=== PATIENT | female | born 1995 | race Caucasian/White ===

== ENCOUNTER 2024-09-25 09:21 | Emergency (ER) | payer MEDICAID, SELFPAY ==
[2024-09-25 09:21] VITALS: BP 114/79; PULSE 74; RESP 19; TEMP 36.4; O2SAT 100; BMI 20.2
[2024-09-25 09:23] VITALS: BP 150/70; RESP 18; O2SAT 100
--- NOTE | 2024-09-25 09:35 | EKG12_ITS ---
Test Reason : CP/DIZZY Blood Pressure : */* mmHG Vent. Rate : 66 BPM Atrial Rate : 66 BPM P-R Int : 140 ms QRS Dur : 72 ms QT Int : 386 ms P-R-T Axes : 62 31 42 degrees QTcB Int : 404 ms Normal sinus rhythm with sinus arrhythmia Low voltage QRS Borderline ECG Confirmed by Earnest Jackson ([id number]), clinical editor JAMIE MARCUM ([id number]) on 09/26/2024 11:39:43 AM Referred By: ABHAY Confirmed By: Earnest Jackson
--- NOTE | 2024-09-25 09:36 | EX.ED.DYSGE1 ---
HPI History of Present Illness Chief Complaint: Dizziness Narrative Narrative: 28-year-old female past medical history of POTS, diagnosed approximately 2 years ago presents with 2 days of lightheadedness and near syncope. She states is worse when she bends over. She states that everything slows down, and it is worse when she stands back up. She feels like she has got a pass out. She denies heart palpitations or chest pain associated with this, no other symptoms. This feels very similar to her previous POTS episodes. No recent visits to the emergency department for IV fluids, no nausea or vomiting, no dysuria or other symptoms. She states that she is on Midrin to elevate her blood pressure. [facility] Medical History (Updated 09/25/24 @ 10:53 by Jack Musa MD) POTS (postural orthostatic tachycardia syndrome) Allergy/AdvReac Type Severity Reaction Status Date / Time bee venom protein (honey Allergy Severe Anaphylaxis Verified 09/25/24 09:23 bee) (bees) latex Allergy Intermediate Hives Verified 09/25/24 09:23 mai Allergy Intermediate Swelling Verified 09/25/24 09:23 Social History Smoking Status: Current every day smoker tobacco type: e-cigarettes ROS ROS ED ROS Narrative Constitutional: No fever, no chills. HEENT: No sore throat. No neck pain. No loss of vision. No rhinorrhea. Cardiovascular: No chest pain. No palpitations. No pedal edema. Respiratory: No cough, no shortness of breath. Abdominal: No abdominal pain. No nausea. No vomiting. Genitourinary: No dysuria. No hematuria. Musculoskeletal: No myalgias. No arthralgias. Neurologic: No headaches. Positive lightheadedness and dizziness, especially with standing. EXAM Physical Exam Narrative Exam Narrative: Afebrile. Vital signs noted. Regular rate and rhythm. Lungs are clear to auscultation bilaterally. Abdomen soft nontender with normal active bowel sounds. Neurological examination is nonfocal and nonlateralizing. Const Vital Signs: 09/25/24 09:21 09/25/24 09:23 09/25/24 10:23 Temperature 97.6 F L Temperature Source Temporal Pulse Rate 74 61 Respiratory Rate 19 H 18 16 Blood Pressure 114/79 150/70 H 103/69 Blood Pressure Mean 90 96 80 Pulse Ox 100 100 100 Oxygen Delivery Method Room Air Room Air 09/25/24 10:23 Temperature 97.9 F Temperature Source Pulse Rate 61 Respiratory Rate 16 Blood Pressure 103/69 Blood Pressure Mean 80 Pulse Ox 99 Oxygen Delivery Method MDM MDM MDM Narrative Medical decision making narrative: Differential diagnosis includes but not limited to POTS syndrome versus orthostatic hypotension versus dehydration versus other electrolyte imbalance. I have low suspicion for acute coronary syndrome because the history and physical does not support this. She was bolused IV fluids. Additionally, EKG was obtained and interpreted by myself independently as normal sinus rhythm with sinus arrhythmia at [address] changes. No STEMI. I do not feel she needs a troponin that she is not having chest pain. Additionally, I do not feel that she needs an x-ray of her chest because her pulse ox is 100% on room air and she is not having chest pain. I reviewed her laboratory work and she has normal white count of 6.6 with hemoglobin stable at 11.5, hematocrit 34.5, platelet count normal at 326. CMP is grossly unremarkable with normal sodium and normal potassium, no evidence of dehydration with a normal BUN and normal creatinine. Upon repeat examination, she states she feels the same, but I do not feel that she requires admission or further testing. I do feel that she is probably having more of her POTS exacerbation for which she can follow-up with her data reduction technician at [facility]. I feel she can be discharged to follow-up. Return instructions to the emergency department reviewed. Disposition is discharged home in stable condition. History & Record Review Discussion w/independent historian: Patient Lab Data Attestation: I reviewed the patient's lab results. Labs: Laboratory Results - last 24 hr 09/25/24 09:50 WBC 6.6 RBC 3.86 L Hgb 11.5 L Hct 34.5 L MCV 89.4 MCH 29.8 MCHC 33.3 RDW Std Deviation 39.6 RDW Coeff of Danny 12.3 Plt Count 326 MPV 8.7 Immature Gran % (Auto) 0.300 Neut % (Auto) 52.0 Lymph % (Auto) 36.1 Mccreary % (Auto) 9.6 Eos % (Auto) 1.2 Baso % (Auto) 0.8 Absolute Neuts (auto) 3.4 Absolute Lymphs (auto) 2.38 Nucleated RBC % 0 Sodium 140 Potassium 3.6 Chloride 105 Carbon Dioxide 27.0 Anion Gap 8 BUN 13 Creatinine 0.61 Estim Creat Clear Calc 103.61 Est GFR (MDRD) Af Amer 149 Est GFR (MDRD) Non-Af 123 BUN/Creatinine Ratio 21.3 H Glucose 78 Calcium 9.1 Total Bilirubin 0.50 AST 16 ALT 16 Alkaline Phosphatase 50 Total Protein 7.3 Albumin 4.2 Globulin 3.1 Albumin/Globulin Ratio 1.4 Discharge Plan Triage Chief Complaint: Dizziness ED Provider: Jack Musa Dx/Rx/DC Orders Clinical Impression: Lightheadedness, POTS (postural orthostatic tachycardia syndrome) Instructions: ED Low Blood Pressure, All Causes, ED Near-Fainting, Uncertain Cause Stand Alone Forms: ED Work / School Excuse Primary Care Provider: Serjio Mi Referrals: NOT,DEFINED [Non-Staff] - Activity Restrictions/Additional Instructions: Follow-up with your data reduction technician at [facility]. Return with new or worsening symptoms. Print Language: South Korean Disposition Disposition: Home, Self Care Discharge Date/Time: 09/25/24 11:24
[2024-09-25 09:58] LABS: Absolute Lymphocyte Count 2.38 X10^3/uL (0.83-4.51); Absolute Neutrophil Count 3.4 X10^3/uL (2.0-7.7); Basophil# 0.05 X10^3/uL; Basophil% 0.8 % (0-1); Eosinophil# 0.08 X10^3/uL; Eosinophils% 1.2 % (0-5); Hematocrit 34.5 % (37-47); Hemoglobin 11.5 g/dL (12.0-15.0); Lymphocyte # 2.38 X10^3/ul (0.83-4.51); Lymphocyte % 36.1 % (19-41); Mean Corp Hgb Conc 33.3 g/dL (32-36); Mean Corpuscular Hgb 29.8 pg (27.0-32.0); Mean Corpuscular Volume 89.4 fL (81-99); Mean Platelet Vol. 8.7 fl (6.2-12.0); Monocyte# 0.63 X10^3/uL; Monocyte% 9.6 % (0-10); NRBC Flagged by Analyzer 0 % (0-5); Neutrophil # 3.43 X10^3/uL (2.7-7.7); Platelet Count 326 K/mm3 (150-450); RBC Distribution Width CV 12.3 % (11.6-14.6); RBC Distribution Width SD 39.6 fl (35.1-43.9); Red Blood Count 3.86 M/mm3 (4.2-5.4); White Blood Count 6.6 K/mm3 (4.4-11.0)
[2024-09-25] MEDS: 0.9% Normal Saline (1000mL) 1,000 ML 1000 ML IV (10:04)
[2024-09-25 10:23] VITALS: BP 103/69; PULSE 61; RESP 16; TEMP 36.6; O2SAT 100; O2SAT 99
[2024-09-25 10:25] LABS: ALB/GLOB Ratio 1.4 RATIO (0.9-2.4); AST(SGOT) 16 U/L (15-37); Alanine Aminotransfer ALT/SGPT 16 U/L (13-56); Albumin, Serum 4.2 g/dL (3.2-5.0); Alkaline Phosphatase 50 U/L (45-117); Anion Gap 8 (5-15); BUN 13 mg/dL (7-18); BUN/Creat Ratio 21.3 RATIO (10-20); Calcium,Total 9.1 mg/dL (8.5-10.1); Chloride 105 mmol/L (98-107); Creatinine, Serum 0.61 mg/dL (0.55-1.02); EST Glomerular Filtration Rate 123 mL/min (>60); Est Glom Filt Rate - Afr Amer 149 mL/min (>60); Estimated Creatinine Clearance 103.61 ml/min; Globulin 3.1 g/dL (2.2-4.2); Glucose 78 mg/dL (74-106); Potassium 3.6 mmol/L (3.5-5.1); Protein, Total 7.3 g/dL (6.4-8.2); Sodium Level 140 mmol/L (136-145)
== END 2024-09-25 11:24 | disposition home or self-care (01) ==
PROVIDERS: Emergency Provider Emergency Medicine; PCP Obstetrics & Gynecology; Visit Provider Emergency Medicine
DX: R42 Dizziness and giddiness (principal); G90.A Postural orthostatic tachycardia syndrome [POTS]; F17.290 Nicotine dependence, other tobacco product, uncomplicated
CPT/HCPCS: 96360; 80053; 85025; 93005; 99284; J7030; A4216

== ENCOUNTER 2024-10-08 15:40 | Emergency (ER) | payer MEDICAID, SELFPAY ==
[2024-10-08 15:41] VITALS: BP 108/78; PULSE 96; RESP 16; TEMP 36.3; O2SAT 98; BMI 20.3
--- NOTE | 2024-10-08 16:01 | EX.ED.DYSGE1 ---
HPI History of Present Illness Chief Complaint: Lower Extremity Injury Narrative Narrative: Patient is a 28-year-old female with past medical history of POTS on midodrine who presents to the emergency department chief complaint of left vanegas pain. Patient states about 2 weeks ago a recliner hit her vanegas and she states that it has been painful since. States that she has been unable to completely bear weight on this she states that she is limping around. States that she took Tylenol this morning for pain control but has not taken anything since. Patient denies any pain or other injuries to this leg. [facility] Medical History POTS (postural orthostatic tachycardia syndrome) Allergy/AdvReac Type Severity Reaction Status Date / Time bee venom protein (honey Allergy Severe Anaphylaxis Verified 10/08/24 15:43 bee) (bees) latex Allergy Intermediate Hives Verified 10/08/24 15:43 mai Allergy Intermediate Swelling Verified 10/08/24 15:43 Social History Smoking Status: Current every day smoker tobacco type: e-cigarettes ROS ROS ED ROS Narrative Constitutional: Denies any fevers, chills, headaches, lightness, dizziness Neurological: Denies numbness, weakness, tingling Musculoskeletal: Complains of left vanegas pain as noted above Skin: Denies rashes or lesions EXAM Physical Exam Narrative Exam Narrative: General: Patient lying in bed rest comfortably did not appear to be acute distress Head: Atraumatic, normocephalic Eyes: PERRL bilateral, EOMI bilateral, no conjunctival injection noted Neck: Soft, supple, trachea midline Cardiovascular: Regular in rhythm no murmurs gallops rubs noted Musculoskeletal: Patient has tenderness palpation anterior along her left vanegas. Compartments soft and compressible. All of the bony prominences and joints taken through full range of motion no pain elicited Extremities: +5/5 strength noted in the bilateral upper and lower extremities, DP pulses +2/4 in the bilateral lower extremities, no pedal edema on exam Neurological: Patient is following commands knew that she was at [facility] years 2023. Sensation grossly intact in the bilateral lower extremities Skin: Warm, dry, intact, no rashes or lesions noted Const Vital Signs: 10/08/24 15:41 Temperature 97.3 F L Temperature Source Temporal Pulse Rate 96 Respiratory Rate 16 Blood Pressure 108/78 Blood Pressure Mean 88 Pulse Ox 98 Oxygen Delivery Method Room Air MDM MDM MDM Narrative Medical decision making narrative: Patient is a 20-year-old female who presented to the emerged part with a chief complaint of left vanegas pain that has been going on for 2 weeks now. Patient will have a workup performed here on the differential diagnose includes but limited to stress fracture, musculoskeletal contusion. Once workup is obtained reviewed she will be reevaluated. Patient was requesting Tylenol which she will be provided. Patient's x-ray reviewed and by myself and by radiology showed no acute fracture dislocations. Discussed results with patient she would like to go home this point time. She was encouraged to continue to ice, and rotate Tylenol ibuprofen [place] the park. She was vies follow-up primary care physician outpatient setting. All question concerns answered she was discharged home in stable condition. Radiography Diagnostic Testing: Clinical Impression(s) from Imaging Studies Tibia/Fibula X-Ray 10/08/24 16:10 IMPRESSION: Negative. Electronically Signed: Faisal Richey DO at 16:28 EST Reading Location ID and State: [facility] / [place] Tel [phone], Service support , Discharge Plan Triage Chief Complaint: Lower Extremity Injury ED Provider: Paul Zurita Dx/Rx/DC Orders Clinical Impression: Leg pain, left Primary Care Provider: Serjio Mi Referrals: Serjio Mi MD [Primary Care Provider] - Activity Restrictions/Additional Instructions: Follow-up with your primary care physician in the outpatient setting. Ice, rotate Tylenol and ibuprofen [id number]. Return with worsening symptoms or any other concern Print Language: Amharic Disposition Disposition: Home, Self Care
--- NOTE | 2024-10-08 16:10 | RAD_ITS ---
INDICATION: hit vanegas 2 wks ago EXAMINATION/TECHNIQUE: X-RAY - LEFT XR Tibia/Fibula 2 Views 2 VIEWS COMPARISON: FINDINGS: SOFT TISSUES: No soft tissue swelling or gas. No radiopaque foreign body. BONES/JOINTS: No acute fracture or subluxation.. Normal alignment. Preservation of the joint space.. No sclerotic or destructive changes observed. RAD/Tibia & Fibula 2 Views IMPRESSION: Negative. Electronically Signed: Faisal Richey DO at 16:28 EST ,
[2024-10-08] MEDS: Acetaminophen 500 MG Tablet 1000 MG PO (16:20)
== END 2024-10-08 16:45 | disposition home or self-care (01) ==
PROVIDERS: Emergency Provider Emergency Medicine; PCP Obstetrics & Gynecology; Visit Provider Emergency Medicine
DX: M79.662 Pain in left lower leg (principal); G89.11 Acute pain due to trauma; W22.03XA Walked into furniture, initial encounter; F17.290 Nicotine dependence, other tobacco product, uncomplicated
CPT/HCPCS: 73590; 99282

== ENCOUNTER 2024-11-29 08:47 | Emergency (ER) | payer OTHER, SELFPAY ==
[2024-11-29 08:48] VITALS: BP 111/71; PULSE 84; RESP 16; TEMP 36.1; O2SAT 100
--- NOTE | 2024-11-29 09:16 | EKG12_ITS ---
Test Reason : SYNCOPE Blood Pressure : */* mmHG Vent. Rate : 73 BPM Atrial Rate : 73 BPM P-R Int : 146 ms QRS Dur : 74 ms QT Int : 382 ms P-R-T Axes : 50 27 27 degrees QTcB Int : 420 ms Normal sinus rhythm with sinus arrhythmia Low voltage QRS Normal ECG Confirmed by Earnest Jackson ([id number]), health editor JAMIE MARCUM ([id number]) on 11/30/2024 9:34:34 AM Referred By: Confirmed By: Earnest Jackson
--- NOTE | 2024-11-29 09:17 | EX.ED.DYSGE1 ---
HPI History of Present Illness Chief Complaint: Syncope Narrative Narrative: 29-year-old female past medical history of POTS presents with near syncope and lightheadedness that began approximately an hour and 15 minutes ago. She had similar episodes for which she was seen in the emergency department. Today, she asked a colleague if she appeared pale. They had her sit down. After she sat down, she states that she felt very near syncopal/dizzy. It is more as if she feels as if she is going to pass out and states that it is in her eyes that she is feeling the lightheadedness and near syncope. No exacerbating or alleviating factors. She did have chest pain that it resolved. No shortness of breath, no recent fevers or chills, no nausea or vomiting, no diarrhea. [facility] Medical History POTS (postural orthostatic tachycardia syndrome) Allergy/AdvReac Type Severity Reaction Status Date / Time bee venom protein (honey Allergy Severe Anaphylaxis Verified 11/29/24 08:48 bee) (bees) latex Allergy Intermediate Hives Verified 11/29/24 08:48 mai Allergy Intermediate Swelling Verified 11/29/24 08:48 Social History Smoking Status: Current every day smoker tobacco type: e-cigarettes ROS ROS ED ROS Narrative Constitutional: No fever, no chills. HEENT: No sore throat. No neck pain. No loss of vision. No rhinorrhea. Cardiovascular: Resolved chest pain. No palpitations. No pedal edema. Respiratory: No cough, no shortness of breath. Abdominal: No abdominal pain. No nausea. No vomiting. No diarrhea. Genitourinary: No dysuria. No hematuria. Musculoskeletal: No myalgias. No arthralgias. Neurologic: No headaches. No dizziness. Positive lightheadedness and near syncope. Skin: No rash. No change in color. Thought maybe was pale previously. EXAM Physical Exam Narrative Exam Narrative: Afebrile. Vital signs noted. HEENT: Normocephalic. Atraumatic. PERRL, EOMI. Cardiovascular: Regular rate and rhythm. No murmurs, rubs, or gallops appreciated. Respiratory: No tachypnea. Lungs clear to auscultation bilaterally. Gastrointestinal: Abdomen soft, nontender, with normoactive bowel sounds. No rebound or guarding. Neurological: Awake. Alert. Nonfocal, nonlateralizing. Skin: No rash. Normal color. No pallor. Musculoskeletal: No pedal edema. Full range of motion extremities. Const Vital Signs: 11/29/24 08:48 11/29/24 09:39 11/29/24 10:48 Temperature 97 F L Temperature Source Temporal Pulse Rate 84 87 Respiratory Rate 16 16 Respiratory Pattern Normal Blood Pressure 111/71 Blood Pressure Mean 84 Pulse Ox 100 99 Oxygen Delivery Method Room Air MDM MDM MDM Narrative Medical decision making narrative: I reviewed the patient's prior records. She had been seen in the emergency department by myself previously for the same symptoms. Differential diagnosis includes but not limited to ACS versus QTc prolongation versus dehydration versus exacerbation of POTS. She is currently not tachycardic however. She will be bolused normal saline and baseline laboratories and EKG obtained. I do not feel she requires any imaging currently. EKG was obtained and interpreted by myself independently as normal sinus rhythm with sinus arrhythmia at 73 bpm, no acute ST changes. No STEMI. QTc is normal at 420 ms. I reviewed her laboratory work and she has a normal white count of 6.3 and hemoglobin stable at 11.9 when compared to previous labs. Review of her CMP shows AST and ALT low at 11 and 12 which I think is nonspecific, sodium normal at 138 potassium 3.7. Serum is negative. Single troponin is less than 3. I do not feel she needs serial enzymes. Upon repeat examination, she states she feels the same. I do feel that this is probably more her POTS. After her fluid bolus, I feel she can be discharged to follow-up. Return instructions to the emergency department were reviewed. Disposition is discharged home in stable condition. History & Record Review Discussion w/independent historian: Patient Additional record(s) reviewed:: Prior labs Lab Data Attestation: I reviewed the patient's lab results. Labs: Laboratory Results - last 24 hr 11/29/24 09:46 WBC 6.3 RBC 3.84 L Hgb 11.9 L Hct 34.7 L MCV 90.4 MCH 31.0 MCHC 34.3 RDW Std Deviation 39.8 RDW Coeff of Danny 12.1 Plt Count 352 MPV 8.7 Immature Gran % (Auto) 0.300 Neut % (Auto) 61.8 Lymph % (Auto) 28.6 Bland % (Auto) 7.8 Eos % (Auto) 1.0 Baso % (Auto) 0.5 Absolute Neuts (auto) 3.9 Absolute Lymphs (auto) 1.80 Nucleated RBC % 0 Sodium 138 Potassium 3.7 Chloride 107 Carbon Dioxide 26.0 Anion Gap 5 BUN 14 Creatinine 0.56 Est GFR (MDRD) Af Amer 165 Est GFR (MDRD) Non-Af 136 BUN/Creatinine Ratio 25.0 H Glucose 85 Calcium 8.5 Total Bilirubin 0.50 AST 11 L ALT 12 L Alkaline Phosphatase 46 Troponin I High Sens < 3 L Total Protein 6.9 Albumin 3.7 Globulin 3.2 Albumin/Globulin Ratio 1.2 Serum , Qual NEGATIVE Discharge Plan Triage Chief Complaint: Syncope ED Provider: Jack Musa Dx/Rx/DC Orders Clinical Impression: Near syncope, POTS (postural orthostatic tachycardia syndrome) Instructions: ED Near-Fainting, Uncertain Cause Stand Alone Forms: ED Work / School Excuse Primary Care Provider: Serjio Mi Referrals: Serjio Mi MD [Med Staff - Active Staff] - Activity Restrictions/Additional Instructions: Follow-up with your primary care provider. Return with new or worsening symptoms. Drink plenty of oral fluids at home. Print Language: Latvian Disposition Disposition: Home, Self Care
[2024-11-29] MEDS: 0.9% Normal Saline (1000mL) 1,000 ML 999 ML IV (09:56)
[2024-11-29 10:11] LABS: Absolute Neutrophil Count 3.9 X10^3/uL (2.0-7.7); Basophil# 0.03 X10^3/uL; Basophil% 0.5 % (0-1); Eosinophil# 0.06 X10^3/uL; Hematocrit 34.7 % (37-47); Hemoglobin 11.9 g/dL (12.0-15.0); Lymphocyte % 28.6 % (19-41); Mean Corp Hgb Conc 34.3 g/dL (32-36); Mean Corpuscular Volume 90.4 fL (81-99); Mean Platelet Vol. 8.7 fl (6.2-12.0); Monocyte# 0.49 X10^3/uL; Monocyte% 7.8 % (0-10); NRBC Flagged by Analyzer 0 % (0-5); Neutrophil # 3.89 X10^3/uL (2.7-7.7); Neutrophil % 61.8 % (47-70); Platelet Count 352 K/mm3 (150-450); RBC Distribution Width CV 12.1 % (11.6-14.6); RBC Distribution Width SD 39.8 fl (35.1-43.9); Red Blood Count 3.84 M/mm3 (4.2-5.4); White Blood Count 6.3 K/mm3 (4.4-11.0)
[2024-11-29 10:34] LABS: ALB/GLOB Ratio 1.2 RATIO (0.9-2.4); AST(SGOT) 11 U/L (15-37); Alanine Aminotransfer ALT/SGPT 12 U/L (13-56); Albumin, Serum 3.7 g/dL (3.2-5.0); Alkaline Phosphatase 46 U/L (45-117); Anion Gap 5 (5-15); BUN 14 mg/dL (7-18); Calcium,Total 8.5 mg/dL (8.5-10.1); Chloride 107 mmol/L (98-107); Creatinine, Serum 0.56 mg/dL (0.55-1.02); EST Glomerular Filtration Rate 136 mL/min (>60); Est Glom Filt Rate - Afr Amer 165 mL/min (>60); Globulin 3.2 g/dL (2.2-4.2); Glucose 85 mg/dL (74-106); Potassium 3.7 mmol/L (3.5-5.1); Protein, Total 6.9 g/dL (6.4-8.2); Sodium Level 138 mmol/L (136-145); Troponin-I HS < 3 pg/mL (3.0-54.0)
[2024-11-29 10:35] LABS: Internal QC Validated? YES +Cl - CLEAR BKGD; Pregnancy, Serum, hCG Quali. NEGATIVE Negative
[2024-11-29 10:48] VITALS: PULSE 87; RESP 16; O2SAT 99
[2024-11-29 11:42] VITALS: BP 122/78; PULSE 74; RESP 15; TEMP 36.2; O2SAT 98
== END 2024-11-29 11:43 | disposition home or self-care (01) ==
PROVIDERS: Emergency Provider Emergency Medicine; PCP Internal Medicine; Visit Provider Emergency Medicine
DX: R55 Syncope and collapse (principal); G90.A Postural orthostatic tachycardia syndrome [POTS]; F17.290 Nicotine dependence, other tobacco product, uncomplicated
CPT/HCPCS: 80053; 84484; 84703; 85025; 93005; 96360; 99284; A4216

== ENCOUNTER 2024-12-01 12:34 | Emergency (ER) | payer OTHER, SELFPAY ==
[2024-12-01 12:35] VITALS: BP 101/64; PULSE 84; RESP 16; TEMP 36.6; O2SAT 100
[2024-12-01 12:37] VITALS: BMI 21.4
--- NOTE | 2024-12-01 13:04 | ED.VIS.FALL ---
HPI HPI - Fall History of Present Illness Chief Complaint: Fall Informant: patient Occured/Mechanism Occurred: Today Mechanism/Context: Yes slip Fall down steps #: 4 Pain/Injury Pain Location: back Worsened by: Movement Relieved by: Nothing Associated Symptoms Associated Symptoms: Negative for Parasthesias, Weakness, Loss of function, Inability to ambulate or Loss of consciousness Narrative Narrative: Patient presents after a fall that occurred today. Patient states she fell down 4 steps while she was taking out her trash. Patient landed on her low back and tailbone. Patient states her pain is worse with any movement. Patient describes it as sharp and aching. Patient denies any head injury or loss of consciousness. Patient denies any paresthesias or weakness. Patient denies any injuries to her arms or legs. Patient was able to ambulate after the fall. [facility] Medical History POTS (postural orthostatic tachycardia syndrome) Home Medications ?Medication ?Instructions ?Recorded ?Last Taken ?Type oxycodone-acetaminophen 5 mg-325 1 tab PO Q6H PRN PRN Pain 3 days 12/01/24 Unknown Rx mg tablet #12 TABLETS Allergy/AdvReac Type Severity Reaction Status Date / Time bee venom protein (honey Allergy Severe Anaphylaxis Verified 12/01/24 12:37 bee) (bees) latex Allergy Intermediate Hives Verified 12/01/24 12:37 mai Allergy Intermediate Swelling Verified 12/01/24 12:37 Surgical History no surgical history no surgical history Social History Smoking Status: Current every day smoker tobacco type: e-cigarettes ROS ROS ED Constitutional Constitutional ED: Denies chills or fever(s) Eyes Eyes: Denies blurry vision or change in vision ENT ENT ED: Denies rhinorrhea or sore throat Cardiovascular Cardiovascular: Denies chest pain or palpitations Respiratory/Chest Respiratory/Chest: Reports dyspnea; Denies cough Gastrointestinal Gastrointestinal: Reports nausea; Denies vomiting Genitourinary Genitourinary ED: Denies dysuria or hematuria Musculoskeletal Musculoskeletal: Reports back pain; Denies neck pain Integumentary Denies abscess or rash Neurologic Neurologic: Denies headache(s) or weakness Allergic/Immunologic Allergic/Immunologic ED: Denies mouth swelling or urticaria EXAM Physical Exam Const Vital Signs: 12/01/24 12:35 12/01/24 13:25 12/01/24 14:34 Temperature 97.9 F Temperature Source Temporal Pulse Rate 84 84 Respiratory Rate 16 18 Respiratory Effort Normal Non-Labored Respiratory Depth Normal Respiratory Pattern Normal Blood Pressure 101/64 Blood Pressure Mean 76 Pulse Ox 100 97 Oxygen Delivery Method Room Air Room Air Room Air Positive well nourished and well developed General Appearance ED: well developed and NAD HEENT Reports normocephalic Neck full ROM and supple Back/Spine Back/Spine Narrative: There is tenderness over the lumbar spine and sacrum. There is no bony crepitance or step-off. There is no edema or ecchymosis. Range of motion was limited in all motions of the lumbar spine secondary to pain. Strength is 5/5 bilaterally upper and lower extremities. There are no sensory deficits noted. Neuro oriented x3, CN's II-XII intact bilaterally, moves all extremities, no focal motor deficits and no sensory deficits noted [place] Coma Scale: document GCS findings Spontaneous Obeys Commands Oriented 15 Sensorium / Orientation: alert Motor Exam: strength 5/5 throughout Psych mental status grossly normal and thought process normal MDM MDM MDM Narrative Medical decision making narrative: Differential diagnosis includes fracture, contusion, and muscular strain. X-rays of the lumbar spine and sacrum will be obtained to assess for fracture. Radiography X-Ray: LS SPine, Fracture (Distal sacrum) and Compression (T11) Diagnostic Testing: Clinical Impression(s) from Imaging Studies Lumbar Spine X-Ray 12/01/24 13:27 IMPRESSION: Finding suggestive of a distal sacral fracture. Indeterminant T11 superior endplate deformity, may reflect a fracture of uncertain chronicity. Electronically Signed: Asia Nichols MD at 14:40 EST , Sacrum and Coccyx X-Ray 12/01/24 13:27 IMPRESSION: Indeterminant deformities within the distal sacrum concerning for fractures. Electronically Signed: Asia Nichols MD at 15:11 EST , X-rays of the lumbar spine were obtained. There are 2 views. On my independent interpretation, there is a age-indeterminate superior endplate deformity of T11. There is also questionable distal sacral fracture. Radiologist also interpreted the x-rays and agrees. X-rays of the sacrum and coccyx were obtained. There are 3 views. On my independent interpretation, there are distal sacral fracture. There is no displacement. Radiologist also interpreted the x-rays and agrees. Treatment and Re-Evaluation Narrative: Patient was given a dose of [place] here. Patient had minimal relief with this. Patient was given injection of morphine. Patient was advised of her findings. Patient was given a prescription for Percocet. Patient was instructed to use ice to the areas. Patient was instructed to get an inflatable donut pillow to sit on. Patient was instructed to follow-up with her primary care physician. Patient is also given referral for orthopedics with Dr. Christie. Patient was given restrictions for work. Patient was instructed to return if worse in any way. Patient understood and was agreeable with the plan. All questions were answered. Discharge Plan Triage Chief Complaint: Fall ED Provider: Casey Rosales Dx/Rx/DC Orders Clinical Impression: Closed sacral fracture, Compression fracture of T11 vertebra, Fall Instructions: ED Fracture, Vertebral Compression Prescriptions: New oxycodone-acetaminophen 5-325 mg tablet 1 tab PO Q6H PRN PRN (Reason: Pain) 3 Days Qty: 12 0RF Stand Alone Forms: Work Status Form Primary Care Provider: Serjio Mi Referrals: Serjio Mi MD [Primary Care Provider] - 5-7 Days Print Language: Slovenian Disposition Disposition: Home, Self Care
--- NOTE | 2024-12-01 13:27 | RAD_ITS ---
INDICATION: Injury/Pain EXAMINATION/TECHNIQUE: X-RAY - XR Spine Lumbar 2 or 3 Views COMPARISON: Sacrum/Coccyx dated December 01, 2024 FINDINGS: VERTEBRAE: There is a T11 superior endplate deformity visualized on the lateral image. There is a deformity within the ventral aspect of the distal sacrum suggestive of a fracture. No spondylolisthesis. Preservation of the normal lumbar lordosis. No significant facet arthropathy. DISCS: Disc spaces are maintained. INCLUDED ABDOMEN: Included bowel gas pattern is non-obstructive. RAD/Lumbar Spine 2 or 3 Views IMPRESSION: Finding suggestive of a distal sacral fracture. Indeterminant T11 superior endplate deformity, may reflect a fracture of uncertain chronicity. Electronically Signed: Asia Nichols MD at 14:40 EST ,
--- NOTE | 2024-12-01 13:27 | RAD_ITS ---
INDICATION: Trauma EXAMINATION/TECHNIQUE: X-RAY - XR Sacrum/Coccyx Min 2 Views COMPARISON: Lumbar spine dated December 01, 2024 FINDINGS: SACRUM/COCCYX: Overlying bowel gas obscures anatomic detail. There are 2 deformities within the distal sacrum. No destructive or sclerotic lesions. SACRO-ILIAC JOINTS: The articular structures are unremarkable. SOFT TISSUES: No soft tissue swelling or gas. RAD/Sacrum-Coccyx min 2 Views IMPRESSION: Indeterminant deformities within the distal sacrum concerning for fractures. Electronically Signed: Asia Nichols MD at 15:11 EST ,
[2024-12-01] MEDS: HYDROcodone Bitartrate/Apap 5/325 Tablet PO (13:32)
[2024-12-01 14:34] VITALS: PULSE 84; RESP 18; O2SAT 97
[2024-12-01] MEDS: Morphine 4 MG/ML Syringe IM (15:24)
[2024-12-01 16:00] VITALS: BP 106/70; PULSE 80; RESP 16; O2SAT 100
[2024-12-01 16:24] VITALS: BP 106/70; PULSE 80; RESP 16; TEMP 36.4; O2SAT 100
[2024-12-01 16:27] VITALS: BP 106/70; PULSE 80; RESP 16; TEMP 36.4; O2SAT 100
== END 2024-12-01 16:27 | disposition home or self-care (01) ==
PROVIDERS: Emergency Provider Emergency Medicine; PCP Internal Medicine; Visit Provider Emergency Medicine
DX: S32.10XA Unspecified fracture of sacrum, initial encounter for closed fracture (principal); S22.080A Wedge compression fracture of T11-T12 vertebra, initial encounter for closed fracture; F17.290 Nicotine dependence, other tobacco product, uncomplicated; R06.00 Dyspnea, unspecified; W10.9XXA Fall (on) (from) unspecified stairs and steps, initial encounter
CPT/HCPCS: 72100; 72220; 96372; 99282

== ENCOUNTER → 2024-12-24 | Outpatient (CLI) | payer OTHER, SELFPAY ==
--- NOTE | 2024-12-24 08:25 | RAD_ITS ---
EXAM: XR Lumbosacral Spine, 2 or 3 Views CLINICAL INDICATION: TECHNIQUE: Frontal and lateral views of the lumbar spine and sacrum. COMPARISON: No relevant prior studies available. FINDINGS: VERTEBRAE: Unremarkable. No acute fracture. Normal alignment. SACRUM/COCCYX: Unremarkable as visualized. No acute fracture. DISC SPACES: No acute findings. No significant narrowing. SOFT TISSUES: Unremarkable. RAD/Lumbar Spine 2 or 3 Views IMPRESSION: No acute fracture. Reading Location: [facility]
== END | disposition home or self-care (01) ==
LOC: RAD 08:17
PROVIDERS: PCP Internal Medicine; Referring Provider Student in an Organized Health Care Education/Training Program; Visit Provider Student in an Organized Health Care Education/Training Program
DX: M54.50 Low back pain, unspecified (principal)
CPT/HCPCS: 72100

== ENCOUNTER → 2025-01-31 | Outpatient (CLI) | payer OTHER, SELFPAY ==
--- NOTE | 2025-01-31 14:18 | RAD_ITS ---
EXAM: XR Lumbosacral Spine, 2 or 3 Views CLINICAL INDICATION: PAIN TECHNIQUE: Frontal and lateral views of the lumbar spine and sacrum. COMPARISON: No relevant prior studies available. FINDINGS: VERTEBRAE: Unremarkable. No acute fracture. Normal alignment. SACRUM/COCCYX: Unremarkable as visualized. No acute fracture. DISC SPACES: No acute findings. No significant narrowing. SOFT TISSUES: Unremarkable. RAD/Lumbar Spine 2 or 3 Views IMPRESSION: No acute fracture. Reading Location: [facility]
== END | disposition home or self-care (01) ==
LOC: RAD 14:12
PROVIDERS: PCP Internal Medicine; Referring Provider Student in an Organized Health Care Education/Training Program; Visit Provider Student in an Organized Health Care Education/Training Program
DX: M54.50 Low back pain, unspecified (principal)
CPT/HCPCS: 72100

== ENCOUNTER 2025-02-01 15:14 | Emergency (ER) | payer OTHER, SELFPAY ==
[2025-02-01] VITALS (7 sets, daily range): BP systolic 109–123; BP diastolic 66–80; PULSE 66–90; RESP 16–20; TEMP 36.3; O2SAT 98–100; BMI 22.6
--- NOTE | 2025-02-01 16:15 | EKG12_ITS ---
Test Reason : CP Blood Pressure : */* mmHG Vent. Rate : 63 BPM Atrial Rate : 63 BPM P-R Int : 138 ms QRS Dur : 74 ms QT Int : 404 ms P-R-T Axes : 34 19 23 degrees QTcB Int : 413 ms Sinus rhythm with marked sinus arrhythmia Low voltage QRS Borderline ECG Confirmed by SARAH GUEVARA, ELIAS ([id number]), editor continuity and script NAHOMI UP ([id number]) on 02/04/2025 10:59:50 AM Referred By: MAYELIN/ZORAIDA Confirmed By: ELIAS SMITH MD
--- NOTE | 2025-02-01 16:45 | RAD_ITS ---
PROCEDURE: CHEST 1 VIEW (PORTABLE) 02/01/2025 REASON FOR EXAM: CHEST PAIN TECHNIQUE: Frontal view of the chest. COMPARISON: None. FINDINGS: The heart size is normal. The lungs are clear. RAD/Chest 1 View (Portable) IMPRESSION: No Acute Findings. [facility]
[2025-02-01 16:50] LABS: Absolute Lymphocyte Count 2.48 X10^3/uL (0.83-4.51); Absolute Neutrophil Count 3.9 X10^3/uL (2.0-7.7); Basophil# 0.06 X10^3/uL; Basophil% 0.8 % (0-1); Eosinophils% 1.4 % (0-5); Hematocrit 33.2 % (37-47); Hemoglobin 11.1 g/dL (12.0-15.0); Lymphocyte # 2.48 X10^3/ul (0.83-4.51); Lymphocyte % 34.5 % (19-41); Mean Corp Hgb Conc 33.4 g/dL (32-36); Mean Corpuscular Hgb 30.3 pg (27.0-32.0); Mean Corpuscular Volume 90.7 fL (81-99); Mean Platelet Vol. 8.9 fl (6.2-12.0); Monocyte% 8.4 % (0-10); NRBC Flagged by Analyzer 0 % (0-5); Neutrophil # 3.92 X10^3/uL (2.7-7.7); Neutrophil % 54.6 % (47-70); Platelet Count 367 K/mm3 (150-450); RBC Distribution Width CV 12.3 % (11.6-14.6); RBC Distribution Width SD 40.8 fl (35.1-43.9); Red Blood Count 3.66 M/mm3 (4.2-5.4); White Blood Count 7.2 K/mm3 (4.4-11.0)
[2025-02-01 17:14] LABS: Anion Gap 11 (5-15); BUN 16 mg/dL (4-19); BUN/Creat Ratio 23.9 RATIO (10-20); Calcium,Total 9.3 mg/dL (7.6-11.0); Carbon Dioxide 23.9 mmol/L (21.0-32.0); Chloride 105 mmol/L (98-108); Creatinine, Serum 0.66 mg/dL (0.70-1.20); EST Glomerular Filtration Rate 122 (>60); Estimated Creatinine Clearance 94.91 ml/min (50-250); Glucose 85 mg/dL (70-99); Potassium 3.6 mmol/L (3.3-5.1); Sodium Level 139 mmol/L (133-145); Troponin T High Sensitivity < 6 ng/L (<=14)
--- NOTE | 2025-02-01 17:14 | ED.VIS.CHEST ---
HPI History of Present Illness Chief Complaint: Chest Pain Informant: patient Onset/Context/Timing Onset: Today Activity at onset: sudden Timing: Continuous Quality: Positive for Dull Current Severity: Gone Maximum Severity: Mild Worsened By: Nothing Relieved By: Nothing Associated Symptoms: Negative for Nausea, Vomiting, Diaphoresis, Dyspnea, Cough, Fever, Lightheadedness, Acid Reflux or Palpitations Narrative Narrative: 29-year-old female history of POTS. She was cleaning today and developed chest discomfort. Said it lasted an hour or so. Now resolved. [employer] want her to get it checked out. No prior history of DVT or PE. No recent travel, surgery or immobilization. Prior Similar Symptoms: Yes Recent Illness/Hospitalization: No CVD Risk Factors: Negative for Hypertension or Diabetes PE Risk Factors: Negative for Recent Travel/Surgery, Recent Immobilization, Prior DVT or PE, Cancer or OCP + Smoking + >/=35 PFSH PFSH Medical History POTS (postural orthostatic tachycardia syndrome) Home Medications ?Medication ?Instructions ?Recorded ?Last Taken ?Type baclofen 10 mg tablet 10 mg PO TID #30 tabs 12/24/24 Unknown Rx inulin 2 gram chewable tablet g PO 12/24/24 Unknown History (Prebiotic Fiber) lactobacillus combination no.4 3 3,000 mmu cells PO QDAY 12/24/24 Unknown History billion cell capsule (Probiotic) midodrine 5 mg tablet mg PO 12/24/24 Unknown History omega 5-uwv-tbh-fish oil 60 mg-90 1 cap PO QDAY 12/24/24 Unknown History mg-500 mg capsule (Fish Oil) pantoprazole 20 mg tablet,delayed 20 mg PO QDAY 12/24/24 Unknown History release methocarbamol 500 mg tablet 500 mg PO TID PRN pain/spasms #30 01/31/25 Unknown Rx tabs Allergy/AdvReac Type Severity Reaction Status Date / Time bee venom protein (honey Allergy Severe Anaphylaxis Verified 02/01/25 15:16 bee) (bees) latex Allergy Intermediate Hives Verified 02/01/25 15:16 mai Allergy Intermediate Swelling Verified 02/01/25 15:16 Social History housing: house Smoking Status: Current every day smoker tobacco type: e-cigarettes ROS ROS ED ROS Narrative Denies recent illness. Constitutional Constitutional ED: Denies chills or fever(s) Eyes Eyes: Reports none ENT ENT ED: Denies ear pain Cardiovascular Cardiovascular: Reports chest pain; Denies palpitations or racing heartbeat Respiratory/Chest Respiratory/Chest: Denies cough or dyspnea Gastrointestinal Gastrointestinal: Denies abdominal pain Genitourinary Genitourinary ED: Denies dysuria or hematuria Musculoskeletal Musculoskeletal: Denies arthralgias Integumentary Denies abscess or Abrasions Neurologic Neurologic: Denies headache(s) Psychiatric Psychiatric: Denies anxiety or depression Endocrine Endocrinology: Denies cold intolerance Hematologic/Lymphatic Hematologic/Lymphatic: Denies easy bleeding, easy bruising or lymphadenopathy Allergic/Immunologic Allergic/Immunologic ED: Denies mouth swelling, tongue swelling or urticaria EXAM Physical Exam Narrative Exam Narrative: Well-appearing 29-year-old female. Vital signs are stable afebrile. Pulse ox 100% on room air no hypoxia. H EENT exam pupils round react light. Mytrex membranes. Neck nontender no JVD. No lymphadenopathy. Lungs clear to auscultation bilaterally. Heart regular rate and rhythm rate about 80 no murmur. Chest wall and ribs nontender. No ecchymosis or bruising. No rash. No crepitance. No bony tenderness or deformity. Normal exam of the chest wall. Abdomen is soft nontender. Normal bowel sounds without peritoneal signs. Moving all 4 extremities. Equal symmetrical purchasing/receiving strength. Equal symmetric radial pulses. Calves are nontender without edema or cords. Dorsi plantarflexion intact. Back nontender. Neurologically she is awake and alert no focal motor deficits. Const Vital Signs: 02/01/25 15:14 02/01/25 16:49 02/01/25 16:49 Temperature 97.4 F L Temperature Source Temporal Pulse Rate 69 66 Respiratory Rate 16 16 Respiratory Effort Blood Pressure 123/80 H 109/66 Blood Pressure Mean 94 80 Pulse Ox 100 98 98 Oxygen Delivery Method Room Air Room Air 02/01/25 16:49 02/01/25 17:00 02/01/25 18:00 Temperature Temperature Source Pulse Rate 79 87 Respiratory Rate 16 17 Respiratory Effort Normal Non-Labored Blood Pressure 110/74 114/76 Blood Pressure Mean 86 88 Pulse Ox 98 99 Oxygen Delivery Method 02/01/25 19:00 02/01/25 20:00 02/01/25 21:00 Temperature Temperature Source Pulse Rate 90 75 79 Respiratory Rate 16 16 20 H Respiratory Effort Blood Pressure 111/77 Blood Pressure Mean 88 Pulse Ox 98 98 99 Oxygen Delivery Method Room Air Positive well nourished and well developed; Negative for obese, cachectic, contractures or unkempt General Appearance ED: well developed; Negative for unkempt, cachectic, contractures or pallor Nutritional Appearance: Negative for cachectic or obese HEENT Reports moist mucous membranes normocephalic and atraumatic Eyes PERRL and EOMs intact bilaterally General Eye ED: Negative for pale conjunctiva or scleral icterus Neck no lymphadenopathy, supple and no JVD General: Negative for tenderness Chest Wall inspection of chest normal and palpation of chest normal Chest: Negative for tenderness Resp normal respiratory effort and clear to auscultation bilaterally Effort and Inspection: Negative for respiratory distress Auscultation: Negative for rales, rhonchi, wheezes or diminished lung sounds Cardio regular rate, regular rhythm, S1 normal heart sound, S2 normal heart sound and no murmurs Rate: Negative for bradycardia or tachycardic Peripheral Pulses: pulses 2+ throughout GI normal to inspection, nondistended, normoactive bowel sounds, soft to palpation, non-tender, non-distended and no masses Back/Spine no CVA tenderness and no thoracic nor lumbar tenderness Extremity normal to inspection General Extremety ED: Negative for edema, pulses abnormal or tenderness General Extremity: Negative for edema or pulses abnormal Neuro oriented x3 and CN's II-XII intact bilaterally Sensorium / Orientation: awake, alert, oriented to person and oriented to place; Negative for oriented to time, confused, lethargic or stuporous Motor Exam: strength 5/5 throughout Psych mental status grossly normal Appearance: Negative for unkempt Attitude: No agitated Mood & Affect: Negative for depressed, anxious or tearful Skin no rashes or lesions noted and no wounds General Skin Exam: Negative for jaundice or pallor Rashes: No rashes noted Trauma: Negative for abrasion, laceration or puncture MDM MDM MDM Narrative Medical decision making narrative: 29-year-old female atypical nonreproducible chest pain. Cardiac workup. No risk factors or history of DVT or PE. Did not think she needs a D-dimer nor CTA of her chest. Repeat exam patient is doing well at 9:18 PM. We went over all of her test results including her EKG and chest x-ray. She is comfortable being discharged home. Chest pain uncertain etiology. History & Record Review Discussion w/independent historian: Patient Additional record(s) reviewed:: Prior inpatient record, Prior outpatient record, Prior ED visit and Prior labs Lab Data Attestation: I reviewed the patient's lab results. Lab results narrative: CBC shows a white count of 7. H&H 11.1 and 33. Platelets 367. Electrolytes show gap 11. BUN and creatinine of 16 and 0.6. Glucose 85. Troponin less than 6. 2-hour troponin less than 6 also. Labs: Laboratory Results - last 24 hr 02/01/25 02/01/25 16:40 18:55 WBC 7.2 RBC 3.66 L Hgb 11.1 L Hct 33.2 L MCV 90.7 MCH 30.3 MCHC 33.4 RDW Std Deviation 40.8 RDW Coeff of Danny 12.3 Plt Count 367 MPV 8.9 Immature Gran % (Auto) 0.300 Neut % (Auto) 54.6 Lymph % (Auto) 34.5 [place] % (Auto) 8.4 Eos % (Auto) 1.4 Baso % (Auto) 0.8 Absolute Neuts (auto) 3.9 Absolute Lymphs (auto) 2.48 Nucleated RBC % 0 Sodium 139 Potassium 3.6 Chloride 105 Carbon Dioxide 23.9 Anion Gap 11 BUN 16 Creatinine 0.66 L Estim Creat Clear Calc 94.91 Est GFR (MDRD) Non-Af 122 BUN/Creatinine Ratio 23.9 H Glucose 85 Calcium 9.3 Troponin T High Sens < 6 Troponin T Hi Sens 2 Hr < 6 Radiography Chest X-Ray - ED: 1 View, 2 View, Read by ED Physician, Lungs, Mediastinum, Bony Structures, No Acute Disease and Left Infiltrate Diagnostic Testing: Clinical Impression(s) from Imaging Studies Chest X-Ray 02/01/25 16:45 IMPRESSION: No Acute Findings. Reading Location: [facility] Chest x-ray, portable, single view interpreted by myself shows no acute abnormality. Normal cardiac silhouette. Normal lung brown. No acute abnormalities. No pneumothorax. No infiltrate. No effusion. Rhythm Strip Rhythm Strip: Sinus Rhythm Rate: 63 Ectopy: None EKG Initial EKG: Attestation: I personally reviewed and interpreted this EKG as follows: Interpretation: Sinus Rhythm and No Acute Injury Pattern Comments: Normal sinus rhythm rate of 63 no acute signs of IA or ischemia. Discharge Plan Triage Chief Complaint: Chest Pain ED Provider: Alexy Sadler Dx/Rx/DC Orders Clinical Impression: Chest pain Instructions: ED Chest Pain, Uncertain Cause Prescriptions: No Action midodrine 5 mg tablet PO pantoprazole 20 mg tablet,delayed release (DR/EC) 20 mg PO QDAY Probiotic 3 billion cell capsule 3,000 mmu cells PO QDAY Rx Instructions: administer with a meal Prebiotic Fiber 2 gram tablet,chewable PO omega 2-udd-znb-fish oil [Fish Oil] 60-90-500 mg capsule 1 cap PO QDAY baclofen 10 mg tablet 10 mg PO TID Qty: 30 0RF methocarbamol 500 mg tablet 500 mg PO TID PRN (Reason: pain/spasms) Qty: 30 0RF Primary Care Provider: Serjio Mi Referrals: Serjio Quinteros MD [Med Staff - Senior [employer]] - As Needed Serjio Mi MD [Primary Care Provider] - Activity Restrictions/Additional Instructions: Follow-up with a local primary care physician. Your tests were normal. Print Language: Lao Disposition Disposition: Home, Self Care
[2025-02-01 19:24] LABS: Troponin T High Sens 2 HR < 6 ng/L (<=14)
== END 2025-02-01 21:23 | disposition home or self-care (01) ==
PROVIDERS: Emergency Provider Emergency Medicine; PCP Internal Medicine; Visit Provider Emergency Medicine
DX: R07.9 Chest pain, unspecified (principal); F17.290 Nicotine dependence, other tobacco product, uncomplicated
CPT/HCPCS: 71045; 80048; 84484; 85025; 93005; 99284; A4216

== ENCOUNTER → 2025-06-27 | Outpatient (CLI) | payer OTHER, SELFPAY ==
--- NOTE | 2025-06-27 10:52 | MRI_ITS ---
PROCEDURE: SPINE LUMBAR (ROUTINE) 06/27/2025 REASON FOR EXAM: WORSENING PAIN >6M, ANTERIOR RIGHT RAD SX, T11 FX TECHNIQUE: MRI SPINE LUMBAR (ROUTINE), to include the lower thoracic spine. COMPARISON: AP and lateral lumbar spine of 06/25/2025. FINDINGS: Vertebrae: Chronic appearing wedge compression fracture involving the superior endplate of the T11 vertebral body, with associated mild focal kyphosis. A mild T10-T11 disc bulge is noted. No spinal canal stenosis or neural foraminal narrowing is seen. No acute osseous signal change is noted. Alignment: No significant subluxation is seen. No spondylolysis is identified. Conus Medullaris: Unremarkable. Terminating in the L1-L2 level. L1-2: Unremarkable L2-3: Unremarkable L3-4: Unremarkable L4-5: Unremarkable L5-S1: Unremarkable. Sacrum: Limited imaging of the sacrum and sacroiliac joints show no significant finding. MRI/Spine Lumbar (Routine) IMPRESSION: 1. No acute osseous change is seen. 2. Chronic appearing wedge compression fracture involving the superior endplate of the T11 vertebral body, with associated mild focal kyphosis. Reading Location: [place] [id number]
--- NOTE | 2025-06-27 10:52 | MRI_ITS ---
PROCEDURE: SPINE LUMBAR (ROUTINE) 06/27/2025 REASON FOR EXAM: WORSENING PAIN >6M, ANTERIOR RIGHT RAD SX, T11 FX TECHNIQUE: MRI SPINE LUMBAR (ROUTINE), to include the lower thoracic spine. COMPARISON: AP and lateral lumbar spine of 06/25/2025. FINDINGS: Vertebrae: Chronic appearing wedge compression fracture involving the superior endplate of the T11 vertebral body, with associated mild focal kyphosis. A mild T10-T11 disc bulge is noted. No spinal canal stenosis or neural foraminal narrowing is seen. No acute osseous signal change is noted. Alignment: No significant subluxation is seen. No spondylolysis is identified. Conus Medullaris: Unremarkable. Terminating in the L1-L2 level. L1-2: Unremarkable L2-3: Unremarkable L3-4: Unremarkable L4-5: Unremarkable L5-S1: Unremarkable. Sacrum: Limited imaging of the sacrum and sacroiliac joints show no significant finding. MRI/Spine Lumbar (Routine) IMPRESSION: 1. No acute osseous change is seen. 2. Chronic appearing wedge compression fracture involving the superior endplate of the T11 vertebral body, with associated mild focal kyphosis. Reading Location: [place] [address]
== END | disposition home or self-care (01) ==
LOC: MRI 10:50
PROVIDERS: Referring Provider Student in an Organized Health Care Education/Training Program; Visit Provider Student in an Organized Health Care Education/Training Program
DX: S22.080D Wedge compression fracture of T11-T12 vertebra, subsequent encounter for fracture with routine healing (principal); M54.16 Radiculopathy, lumbar region
CPT/HCPCS: 72148

== ENCOUNTER 2025-07-02 08:24 | Emergency (ER) | payer OTHER, SELFPAY ==
[2025-07-02 08:24] VITALS: BP 115/87; PULSE 95; RESP 14; TEMP 36.2; O2SAT 98; BMI 22.3
--- NOTE | 2025-07-02 08:37 | RAD_ITS ---
PROCEDURE: CHEST PA AND LATERAL 07/02/2025 REASON FOR EXAM: CHEST PAIN TECHNIQUE: CHEST PA AND LATERAL COMPARISON: Prior study dated February 01, 2025. FINDINGS: Hardware: EKG electrodes are seen. Heart: The heart size is normal. Mediastinum: The mediastinal contour is unremarkable. Lungs: The lungs are clear. Bones: The bones are unremarkable. RAD/Chest PA and Lateral IMPRESSION: NEGATIVE CHEST Reading Location: [facility]
--- NOTE | 2025-07-02 08:38 | ED.VIS.CHEST ---
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 She denies any recent leg pain or swelling, no history of DVT or PE. She takes midodrine and has been compliant with it. She states that she has a water bottle with her but has not had the opportunity to drink much in the way of fluids this morning yet. She states she was on one of the inpatient wards and a nurse checked her vital signs and she was having episodes of tachycardia and coming down to the 70s and so they brought her down to the ED to be seen. [facility] Medical History POTS (postural orthostatic tachycardia syndrome) Home Medications ?Medication ?Instructions ?Recorded ?Last Taken ?Type lactobacillus combination no.4 3 3,000 mmu cells PO QDAY 12/24/24 Unknown History billion cell capsule (Probiotic) midodrine 5 mg tablet mg PO 12/24/24 Unknown History omega 9-ckx-xaw-fish oil 60 mg-90 1 cap PO QDAY 12/24/24 Unknown History mg-500 mg capsule (Fish Oil) pantoprazole 20 mg tablet,delayed 20 mg PO QDAY 12/24/24 Unknown History release methocarbamol 500 mg tablet 500 mg PO TID PRN pain/spasms #30 01/31/25 Unknown Rx tabs baclofen 10 mg tablet 10 mg PO TID PRN 06/25/25 Unknown History celecoxib 100 mg capsule (Celebrex) 100 mg PO BID #30 caps 06/25/25 Unknown Rx Allergy/AdvReac Type Severity Reaction Status Date / Time bee venom protein (honey Allergy Severe Anaphylaxis Verified 07/02/25 08:25 bee) (bees) latex Allergy Intermediate Hives Verified 07/02/25 08:25 mai Allergy Intermediate Swelling Verified 07/02/25 08:25 Social History housing: house Smoking Status: Current every day smoker tobacco type: e-cigarettes ROS ROS ED Constitutional Constitutional ED: Denies chills or fever(s) Eyes Eyes: Denies change in vision or diplopia ENT ENT ED: Denies rhinorrhea or sore throat Cardiovascular Cardiovascular: Reports as per HPI, chest pain, lightheadedness, orthostatic symptoms, palpitations and racing heartbeat; Denies leg edema or syncope Respiratory/Chest Respiratory/Chest: Reports dyspnea; Denies cough Gastrointestinal Gastrointestinal: Denies abdominal pain, diarrhea, nausea or vomiting Genitourinary Genitourinary ED: Denies dysuria or hematuria Musculoskeletal Musculoskeletal: Denies back pain or neck pain Integumentary Denies abscess or rash Neurologic Neurologic: Denies headache(s), paresthesias or weakness Psychiatric Psychiatric: Denies anxiety or suicidal thoughts EXAM Physical Exam Const Vital Signs: 07/02/25 08:24 07/02/25 08:37 07/02/25 09:27 Temperature 97.1 F L Temperature Source Temporal Pulse Rate 95 Pulse Rate [Sitting (for 1 minute prior to obtaining)] 74 Pulse Rate [Standing (for 1 minute prior to obtaining)] 72 Respiratory Rate 14 Blood Pressure 115/87 H Blood Pressure [Lying] 98/68 Blood Pressure [Sitting (for 1 minute prior to obtaining)] 103/61 Blood Pressure [Standing (for 1 minute prior to obtaining)] 113/86 H Blood Pressure Mean 96 Blood Pressure Mean [Lying] 78 Blood Pressure Mean [Sitting (for 1 minute prior to obtaining)] 75 Blood Pressure Mean [Standing (for 1 minute prior to obtaining)] 95 Pulse Ox 98 Oxygen Delivery Method Room Air Room Air 07/02/25 10:37 Temperature Temperature Source Pulse Rate 60 Pulse Rate [Sitting (for 1 minute prior to obtaining)] Pulse Rate [Standing (for 1 minute prior to obtaining)] Respiratory Rate 18 Blood Pressure 107/82 H Blood Pressure [Lying] Blood Pressure [Sitting (for 1 minute prior to obtaining)] Blood Pressure [Standing (for 1 minute prior to obtaining)] Blood Pressure Mean 90 Blood Pressure Mean [Lying] Blood Pressure Mean [Sitting (for 1 minute prior to obtaining)] Blood Pressure Mean [Standing (for 1 minute prior to obtaining)] Pulse Ox 98 Oxygen Delivery Method Room Air Positive well nourished and well developed General Appearance ED: well developed and NAD HEENT Reports moist mucous membranes normocephalic and atraumatic Eyes PERRL and EOMs intact bilaterally Neck full ROM and supple Resp normal respiratory effort and clear to auscultation bilaterally Cardio regular rate, regular rhythm and no murmurs Rate: Negative for tachycardic Peripheral Pulses: pulses 2+ throughout GI non-tender and non-distended Auscultation: normoactive bowel sounds Palpation: soft Back/Spine no CVA tenderness General Back: other FROM Extremity normal to inspection General Extremety ED: Negative for edema, pulses abnormal or tenderness General Extremity: Negative for edema or pulses abnormal Neuro oriented x3, CN's II-XII intact bilaterally and no sensory deficits noted Sensorium / Orientation: awake and alert Motor Exam: strength 5/5 throughout Psych mental status grossly normal Skin no rashes or lesions noted and no wounds Heart Score History: Moderately Suspicious Age: </= 45 years Risk Factors: 1 or 2 Risk Factors (E-cigarettes) Score: 2 MDM MDM MDM Narrative Medical decision making narrative: We did orthostatics and they were negative, gave the patient a liter of fluid anyway. 2 view chest x-ray was done and normal on my interpretation, radiology in agreement. The rest of her workup is really unremarkable including her EKG which is normal, troponin given her chest discomfort radiating into the right arm, and giving her episodes of tachycardia and dyspnea, and the fact that in the past as I reviewed labs she has never been evaluated for PE before I did a D-dimer which was normal ruling out PE. After all of these tests and fluids, I reevaluated her, she states she still feels a little short of breath but otherwise feels okay and the chest/arm discomfort is resolved. She states she has been under a lot of stress lately and has had some anxiety, and also has sleep apnea waking up often out of breath, she has a doctors appointment scheduled for initial PCP visit in 1-2 months, I advised that she keep that, but I do not think she needs any other emergent testing right now in the ER she is comfortable with that plan. She was offered a work note. Lab Data Attestation: I reviewed the patient's lab results. Labs: Laboratory Results - last 24 hr 07/02/25 08:45 WBC 4.8 RBC 4.16 L Hgb 12.5 Hct 35.8 L MCV 86.1 MCH 30.0 MCHC 34.9 RDW Std Deviation 37.3 RDW Coeff of Danny 11.9 Plt Count 346 MPV 8.8 Immature Gran % (Auto) 0.200 Neut % (Auto) 53.4 Lymph % (Auto) 37.2 [place] % (Auto) 7.3 Eos % (Auto) 1.3 Baso % (Auto) 0.6 Absolute Neuts (auto) 2.6 Absolute Lymphs (auto) 1.78 Nucleated RBC % 0 D-Dimer Quant (PE/DVT) 0.27 Sodium 136 Potassium 3.5 Chloride 102 Carbon Dioxide 20.5 L Anion Gap 14 BUN 13 Creatinine 0.65 L Estim Creat Clear Calc 96.37 Est GFR (MDRD) Non-Af 122 BUN/Creatinine Ratio 19.3 Glucose 107 H Calcium 9.5 Troponin T High Sens < 6 Radiography Diagnostic Testing: Clinical Impression(s) from Imaging Studies Chest X-Ray 07/02/25 08:37 IMPRESSION: NEGATIVE CHEST Reading Location: [place] [address] Rhythm Strip Rhythm Strip: Sinus Rhythm Rate: 75 Ectopy: None EKG Initial EKG: Attestation: I personally reviewed and interpreted this EKG as follows: Interpretation: Sinus Rhythm and No Acute Injury Pattern Comments: Nml axis & intervals; nml EKG Discharge Plan Triage Chief Complaint: Palpitations ED Provider: Josias Cook Dx/Rx/DC Orders Clinical Impression: Chest pain, unspecified, Dyspnea, Racing heart beat, Orthostatic lightheadedness Instructions: ED Chest Pain, Noncardiac Prescriptions: No Action midodrine 5 mg tablet PO pantoprazole 20 mg tablet,delayed release (DR/EC) 20 mg PO QDAY Probiotic 3 billion cell capsule 3,000 mmu cells PO QDAY Rx Instructions: administer with a meal omega 3-dkm-jir-fish oil [Fish Oil] 60-90-500 mg capsule 1 cap PO QDAY methocarbamol 500 mg tablet 500 mg PO TID PRN (Reason: pain/spasms) Qty: 30 0RF baclofen 10 mg tablet 10 mg PO TID PRN celecoxib [Celebrex] 100 mg capsule 100 mg PO BID Qty: 30 0RF Primary Care Provider: Care Physician,No Primary Referrals: Doctor,Your [Non-Staff] - Keep Jitendra appointment Print Language: Urdu Disposition Disposition: Home, Self Care
[2025-07-02 08:56] LABS: Hematocrit 35.8 % (37-47); Hemoglobin 12.5 g/dL (12.0-15.0); Immature Granulocytes Count 0.010 X10^3/uL (0.0-0.0); Mean Corp Hgb Conc 34.9 g/dL (32-36); Mean Corpuscular Volume 86.1 fL (81-99); Mean Platelet Vol. 8.8 fl (6.2-12.0); NRBC Flagged by Analyzer 0 % (0-5); Platelet Count 346 K/mm3 (150-450); RBC Distribution Width CV 11.9 % (11.6-14.6); RBC Distribution Width SD 37.3 fl (35.1-43.9); Red Blood Count 4.16 M/mm3 (4.2-5.4); White Blood Count 4.8 K/mm3 (4.4-11.0)
[2025-07-02 09:27] VITALS: BP 103/61; BP 113/86; BP 98/68; PULSE 72; PULSE 74
[2025-07-02 09:31] LABS: Anion Gap 14 (5-15); BUN 13 mg/dL (4-19); BUN/Creat Ratio 19.3 RATIO (10-20); Calcium,Total 9.5 mg/dL (7.6-11.0); Carbon Dioxide 20.5 mmol/L (21.0-32.0); Chloride 102 mmol/L (98-108); Estimated Creatinine Clearance 96.37 ml/min (50-250); Glucose 107 mg/dL (70-99); Potassium 3.5 mmol/L (3.3-5.1); Troponin T High Sensitivity < 6 ng/L (<=14)
[2025-07-02] MEDS: 0.9% Normal Saline (1000mL) 1,000 ML 999 ML IV (09:35)
[2025-07-02 09:50] LABS: D-Dimer Quantitative (DVT/PE) 0.27 FEU/ug/m (0.27-0.49)
[2025-07-02 10:37] VITALS: BP 107/82; PULSE 60; RESP 18; O2SAT 98
--- NOTE | 2025-07-02 10:52 | CM.ED ---
Social Work Reason for visit: No PCP Patient confirmed that she does not currently have a PCP. [facility] provider list given. No further needs identified at this time. Celina Herrera, SPLITTER HEAD, SQL ARCHITECT
[2025-07-02 10:58] VITALS: BP 101/76; PULSE 86; RESP 16; TEMP 37.1; O2SAT 99
[2025-07-02 11:33] LABS: Troponin T High Sens 2 HR < 6 ng/L (<=14)
== END 2025-07-02 10:59 | disposition home or self-care (01) ==
PROVIDERS: Emergency Provider Emergency Medicine; Visit Provider Emergency Medicine
DX: R07.89 Other chest pain (principal); G90.A Postural orthostatic tachycardia syndrome [POTS]; F17.290 Nicotine dependence, other tobacco product, uncomplicated; Z79.899 Other long term (current) drug therapy
CPT/HCPCS: 71046; 80048; 84484; 85025; 85379; 93005; 96360; 99285

== ENCOUNTER 2025-08-13 11:39 | Emergency (ER) | payer OTHER, SELFPAY ==
[2025-08-13 11:39] VITALS: BP 114/73; PULSE 80; RESP 14; TEMP 36.7; O2SAT 98; BMI 22.2
--- NOTE | 2025-08-13 12:15 | CT_ITS ---
PROCEDURE: ABDOMEN/PELVIS W IV CONT ONLY 08/13/2025 REASON FOR EXAM: RIGHT LOWER QUADRANT ABDOMINAL PAIN TECHNIQUE: Procedure Code: [id number] Modality: CT Procedure: ABDOMEN/PELVIS W IV CONT ONLY Coronal and Sagittal reconstruction series were provided. CONTRAST: Isovue-300 VOLUME: 75 mL One or more dose reduction techniques were used (e.g., Automated exposure control, adjustment of the mA and/or kV according to patient size, use of iterative reconstruction technique. RADIATION DOSE SUMMARY: CTDlvol: 8.1 mGy DLP: 296.46 mGycm COMPARISON: None FINDINGS: Lung bases: Lung bases are clear. Liver: Normal size. No mass. Gallbladder: Unremarkable Spleen: Normal size. Pancreas: Normal size without evidence of mass surrounding inflammation or ductal dilation. Adrenals: Unremarkable Kidneys: Normal renal sizes. No hydronephrosis. Bladder: Unremarkable Reproductive Organs: There is a 3.1 cm x 3.5 cm cyst in the left ovary. A dominant follicle is seen in the right ovary measuring 1.7 cm. No free fluid is seen. Bowel: Unremarkable Appendix: Unremarkable Lymph nodes: Unremarkable. Vasculature: The abdominal aorta and IVC are normal. Peritoneum / Retroperitoneum: Unremarkable Bones: Unremarkable CT/Abdomen/Pelvis W IV Cont ONLY IMPRESSION: There is a 3.1 cm 3.5 cm cyst in the left ovary. Dominant follicle in the right ovary measuring 1.7 cm. No free fluid is seen. Reading Location: [place] [id number]
--- NOTE | 2025-08-13 12:29 | ED.VIS.FEGU ---
HPI HPI - Female History of Present Illness Chief Complaint: Flank Pain Narrative Narrative: Chief complaint and HPI: 29-year-old female with past medical history of POTS on midodrine presents for evaluation of right lower quadrant/flank pain. Onset of symptoms 3 days ago. Denies any fever, chills, shortness of breath, chest pain, nausea, vomiting, diarrhea, constipation, dysuria. States her last menstrual cycle ended on 08/06. States she has been sexually active without control. No history of urolithiasis. Review of systems: See HPI Medications: As listed on the chart Allergies: As listed on the chart PFSH: Per chart Vital signs: As listed on the chart. Reviewed. Physical exam: Gen: A&O x3, NAD Head: Normocephalic, atraumatic Eyes: No sclera icterus, conjunctiva clear ENT: Moist mucous membranes CV: RRR, no murmurs Resp: Lungs CTA BL, no w/r/c GI: Abd soft, non-distended, mildly tender to palpation in the right lower quadrant, no rebound or rigidity : No CVA tenderness Musc: Full ROM, no deformity Skin: Warm, dry Neuro: Alert, oriented, grossly intact, sensation intact Psych: Cooperative, appropriate mood and affect [facility] Medical History POTS (postural orthostatic tachycardia syndrome) Home Medications ?Medication ?Instructions ?Recorded ?Last Taken ?Type lactobacillus combination no.4 3 3,000 mmu cells PO QDAY 12/24/24 Unknown History billion cell capsule (Probiotic) midodrine 5 mg tablet mg PO 12/24/24 Unknown History omega 7-hcn-vmp-fish oil 60 mg-90 1 cap PO QDAY 12/24/24 Unknown History mg-500 mg capsule (Fish Oil) pantoprazole 20 mg tablet,delayed 20 mg PO QDAY 12/24/24 Unknown History release methocarbamol 500 mg tablet 500 mg PO TID PRN pain/spasms #30 01/31/25 Unknown Rx tabs baclofen 10 mg tablet 10 mg PO TID PRN 06/25/25 Unknown History celecoxib 100 mg capsule (Celebrex) 100 mg PO BID #30 caps 06/25/25 Unknown Rx Allergy/AdvReac Type Severity Reaction Status Date / Time bee venom protein (honey Allergy Severe Anaphylaxis Verified 08/13/25 11:41 bee) (bees) latex Allergy Intermediate Hives Verified 08/13/25 11:41 mai Allergy Intermediate Swelling Verified 08/13/25 11:41 Social History housing: house Smoking Status: Current every day smoker tobacco type: e-cigarettes EXAM Physical Exam Const Vital Signs: 08/13/25 11:39 08/13/25 14:23 08/13/25 16:10 Temperature 98.1 F 98.7 F Temperature Source Temporal Pulse Rate 80 67 75 Respiratory Rate 14 18 18 Blood Pressure 114/73 91/74 94/63 Blood Pressure Mean 86 79 73 Pulse Ox 98 100 100 Oxygen Delivery Method Room Air Room Air MDM MDM MDM Narrative Medical decision making narrative: 29-year-old female with past medical history of POTS on midodrine presents for evaluation of right lower quadrant/flank pain. Onset of symptoms 3 days ago. States her last menstrual cycle ended on 08/06. States she has been sexually active without control. Differential diagnosis includes but is not limited to appendicitis, urolithiasis, UTI, , colitis, gastroenteritis. NS bolus, morphine, Zofran ordered. Abdominal pain workup ordered including CT abdomen and pelvis. CBC without leukocytosis or anemia. CMP unremarkable without transaminitis or lipase. UA negative for UTI. Urine negative.CT abdomen pelvis shows a 3.1 x 3.5 cm cyst in the left ovary. There is a dominant follicle seen in the right ovary measuring 1.7 cm. No free fluid. Otherwise no acute intra-abdominal pathology. At this point in time, no clear etiology for patient's pain. Patient was updated on all the results. Given she has a dominant follicle seen in the right ovary, may be ovulating. Patient states that according to a tracker on her phone she is supposed to ovulate today. This may have been the source of her pain. Her pain has improved while being here in the emergency department. She was told to follow-up with her primary care physician. Return back to ED symptoms change or worsen. She confirmed understanding of the plan. Patient stable to discharge home. Of note, patient had a prolonged stay in our emergency department secondary to me having multiple critical care patients. Impression: 1. Right lower quadrant abdominal pain 2. Left ovarian cyst 3. Dominant follicle seen in the right ovary Lab Data Labs: Laboratory Results - last 24 hr 08/13/25 12:35 WBC 6.5 RBC 3.94 L Hgb 12.0 Hct 34.7 L MCV 88.1 MCH 30.5 MCHC 34.6 RDW Std Deviation 39.2 RDW Coeff of Danny 12.1 Plt Count 327 MPV 9.1 Immature Gran % (Auto) 0.300 Neut % (Auto) 57.9 Lymph % (Auto) 32.4 [place] % (Auto) 8.2 Eos % (Auto) 0.6 Baso % (Auto) 0.6 Absolute Neuts (auto) 3.7 Absolute Lymphs (auto) 2.09 Nucleated RBC % 0 Sodium 137 Potassium 4.1 Chloride 101 Carbon Dioxide 24.0 Anion Gap 12 BUN 15 Creatinine 0.47 L Estim Creat Clear Calc 133.27 Est GFR (MDRD) Non-Af 132 BUN/Creatinine Ratio 31.5 H Glucose 80 Calcium 9.7 Total Bilirubin 0.38 AST 17 ALT 10 Alkaline Phosphatase 46 Total Protein 7.4 Albumin 4.7 Globulin 2.7 Albumin/Globulin Ratio 1.8 Lipase 25 Urine Color Yellow Urine Clarity Sl. Cloudy Urine pH 5.0 Ur Specific [place] 1.030 Urine Protein 30 H Urine Glucose (UA) Normal Urine Ketones Negative Urine Occult Blood 10 H Urine Nitrite Negative Urine Bilirubin Negative Urine Urobilinogen Normal Ur Leukocyte Esterase Negative Urine RBC 0 SEEN Urine WBC 0 SEEN Ur Squamous Epith Cells 0-5 SEEN Urine Bacteria 1+ Urine Mucus 2+ Urine Test Negative Radiography Diagnostic Testing: Clinical Impression(s) from Imaging Studies Abdomen/Pelvis CT 08/13/25 12:15 IMPRESSION: There is a 3.1 cm 3.5 cm cyst in the left ovary. Dominant follicle in the right ovary measuring 1.7 cm. No free fluid is seen. Reading Location: [facility] Discharge Plan Triage Chief Complaint: Flank Pain ED Provider: Daniel Jin Dx/Rx/DC Orders Clinical Impression: Abdominal pain, right lower quadrant Instructions: ED Abdominal Pain Unkn Cause Fem Prescriptions: No Action midodrine 5 mg tablet PO pantoprazole 20 mg tablet,delayed release (DR/EC) 20 mg PO QDAY Probiotic 3 billion cell capsule 3,000 mmu cells PO QDAY Rx Instructions: administer with a meal omega 1-tbo-woo-fish oil [Fish Oil] 60-90-500 mg capsule 1 cap PO QDAY methocarbamol 500 mg tablet 500 mg PO TID PRN (Reason: pain/spasms) Qty: 30 0RF baclofen 10 mg tablet 10 mg PO TID PRN celecoxib [Celebrex] 100 mg capsule 100 mg PO BID Qty: 30 0RF Primary Care Provider: Care Physician,No Primary Referrals: Kwaku Fall MD [Med Staff - Active Staff, Family Practice] - 3-5 Days Activity Restrictions/Additional Instructions: No clear reason for your right sided abdominal pain. Tylenol and Motrin as needed for pain. May be secondary to ovulation pain. Follow-up with primary care physician. Return back to ED if symptoms. Print Language: Kenyan Disposition Disposition: Home, Self Care Discharge Date/Time: 08/13/25 16:19
[2025-08-13 12:43] LABS: Red Blood Cells-Urine 0 SEEN /hpf (0-5)
[2025-08-13] MEDS: 0.9% Normal Saline (1000mL) 1,000 ML 999 ML IV (12:43)
[2025-08-13 12:50] LABS: Color, Urine Yellow (Yellow); Glucose, Dipstick Normal (Normal); Ketone-Dipstick Negative (Negative); Leukocyte Esterase-Dipstick Negative /ul (Negative); Nitrite-Dipstick Negative (Negative); Occult Blood-Urine 10 /ul (Negative); Protein-Dipstick 30 mg/dl (Negative); Specific Gravity, Urine 1.030 (1.002-1.030); Urine Bilirubin Dipstick Negative (Negative)
[2025-08-13 12:54] LABS: Hematocrit 34.7 % (37-47); Hemoglobin 12.0 g/dL (12.0-15.0); Immature Granulocytes Count 0.020 X10^3/uL (0.0-0.0); Mean Corp Hgb Conc 34.6 g/dL (32-36); Mean Corpuscular Volume 88.1 fL (81-99); Mean Platelet Vol. 9.1 fl (6.2-12.0); NRBC Flagged by Analyzer 0 % (0-5); Platelet Count 327 K/mm3 (150-450); RBC Distribution Width CV 12.1 % (11.6-14.6); RBC Distribution Width SD 39.2 fl (35.1-43.9); Red Blood Count 3.94 M/mm3 (4.2-5.4); White Blood Count 6.5 K/mm3 (4.4-11.0)
[2025-08-13 12:58] LABS: Mucous, Urine 2+ /hpf (<or=2+); Squamous Epithelial Cells - UA 0-5 SEEN /hpf (5-10)
[2025-08-13 12:59] LABS: Internal QC Validated? YES +Cl - CLEAR BKGD; Pregnancy, Urine Negative Negative; Record Kit Lot#,Urine Preg 0000964736
[2025-08-13 13:11] LABS: AST(SGOT) 17 U/L (<=31); Alanine Aminotransfer ALT/SGPT 10 U/L (<=34); Albumin, Serum 4.7 g/dL (3.5-5.0); Alkaline Phosphatase 46 U/L (35-104); Anion Gap 12 (5-15); BUN 15 mg/dL (4-19); BUN/Creat Ratio 31.5 RATIO (10-20); Calcium,Total 9.7 mg/dL (7.6-11.0); Carbon Dioxide 24.0 mmol/L (21.0-32.0); Chloride 101 mmol/L (98-108); Estimated Creatinine Clearance 133.27 ml/min (50-250); Globulin 2.7 g/dL (2.2-4.2); Glucose 80 mg/dL (70-99); Lipase 25 U/L (13-75); Potassium 4.1 mmol/L (3.3-5.1)
[2025-08-13 14:23] VITALS: BP 91/74; PULSE 67; RESP 18; O2SAT 100
[2025-08-13 16:10] VITALS: BP 94/63; PULSE 75; RESP 18; TEMP 37.1; O2SAT 100
== END 2025-08-13 16:19 | disposition home or self-care (01) ==
PROVIDERS: Emergency Provider Surgery; Visit Provider Surgery
DX: R10.31 Right lower quadrant pain (principal); N83.202 Unspecified ovarian cyst, left side; G90.A Postural orthostatic tachycardia syndrome [POTS]; Z79.899 Other long term (current) drug therapy; F17.290 Nicotine dependence, other tobacco product, uncomplicated
CPT/HCPCS: 74177; 80053; 81001; 81025; 83690; 85025; 96361; 96374; 96375; 99283; Q9967; A4216; J2405

== ENCOUNTER → 2025-09-24 | Outpatient (CLI) | payer OTHER, SELFPAY ==
[2025-09-20 14:11] LABS: hCG Titer Quant., Serum < 1 mIU/mL (<9 non-preg)
--- NOTE | 2025-10-04 15:22 | PCM.TILTTABL ---
Staff Staff: Franny Vazquez and Lesly Escalera Summary Pre Test Resting HR: 81 Pre Test Resting BP: 127/83 Minimum Test HR: 81 Maximum Test HR: 151 Minimum Test BP: 96/69 Maximum Test BP: 127/83 Reason for Test Termination: Presyncope Physician Tilt Table Report Patient's Physicians Primary Care Physician: Oren Goodman Indications/Diagnosis: Possible diagnosis of POTS Procedure Comments: The patient was brought to the noninvasive lab in the postabsorptive state. Informed consent was obtained. Initial heart rate on EKG was noted to be 83 bpm with a blood pressure of 127/83 mmHg. The patient was put in the 70 degree head upright tilt position. Patient's heart rate initially increased to a maximum of 99 bpm within approximately 4 minutes. For the duration of the testing patient's general condition remained stable with no drop in the heart rate or increase or significant changes in the blood pressure. The patient was then put back in the supine position and then administered 0.4 mg of sublingual nitroglycerin and then put in the 70 degree head upright tilt position. The initial heart rate immediately afterwards was 122 bpm with a blood pressure of 120/86 mmHg. The peak heart rate was noted to be 151 bpm occurring after 2 minutes after sublingual nitroglycerin and then the blood pressure slowly dropped to 96/69 mmHg with the patient feeling clammy. The above response is more suggestive of a vasodilatory response with nitroglycerin with orthostatic features. Summary: 70 degree head upright tilt test with no definitive indication of POTS.
[2025-10-04 15:27] VITALS: BP 127/83; BP 96/69
== END | disposition home or self-care (01) ==
LOC: CVS 08:57
PROVIDERS: PCP Internal Medicine; Referring Provider Internal Medicine Cardiovascular Disease; Visit Provider Internal Medicine Cardiovascular Disease
DX: G90.A Postural orthostatic tachycardia syndrome [POTS] (principal)
CPT/HCPCS: 36415; 84702; 93660; A4216

== ENCOUNTER → 2025-09-30 | Outpatient (CLI) | payer OTHER, SELFPAY ==
--- NOTE | 2025-09-30 14:58 | ECHOD_ITS ---
Reason For Study Reason For Study: SYNCOPE Procedure This was a 2D Doppler, Color Flow transthoracic echocardiogram. Exam performed in department. Left Ventricle Normal LV size. Left ventricular systolic function is normal. The left ventricular ejection fraction is 55 %. Normal diastology for age. No regional wall motion abnormalities noted. Right Ventricle Normal RV size. Normal systolic function. Atria Normal left atrium. Normal right atrium. Mitral Valve Normal mitral valve. Tricuspid Valve Normal tricuspid valve. Aortic Valve Normal aortic valve. Trisinus/trileaflet aortic valve. Pulmonic Valve Normal pulmonic valve. Great Vessels Normal aortic root. The pulmonary artery is normal size. Inferior vena cava collapse with sniff. Pericardium/Pleural No pericardial effusion. MMode/2D Measurements & Calculations LVIDd: 3.9 cm IVSd: 0.70 cm Ao root diam: 2.5 cm LVIDs: 3.0 cm LVPWd: 0.83 cm FS: 22.9 % LAV(MOD-bp): 18.9 ml LVAd ap4: 16.1 cm2 SV(MOD-sp4): 16.8 ml LAV(MOD-bp) Indexed: 12.4 ml/m2 LVLd ap4: 6.6 cm SI(MOD-sp4): 11.0 ml/m2 LAV(MOD-sp2): 16.7 ml EDV(MOD-sp4): 32.5 ml LAV(MOD-sp4): 18.5 ml EDV(sp4-el): 33.6 ml LVAs ap4: 10.5 cm2 LVLs ap4: 5.9 cm ESV(MOD-sp4): 15.7 ml ESV(sp4-el): 15.9 ml EF(MOD-sp4): 51.7 % EF(sp4-el): 52.7 % SV(sp4-el): 17.7 ml LA A4 area: 9.7 cm2 LA dimension(2D): 2.7 cm RA A4 area: 7.9 cm2 Time Measurements MV dec time: 0.14 sec Doppler Measurements & Calculations MV E max cristino: 68.8 cm/sec Lat Peak E' Cristino: 17.4 cm/sec MV V2 max: 102.1 cm/sec MV A max cristino: 75.4 cm/sec E/E' lat: 3.9 MV max P.2 mmHg MV E/A: 0.91 MV V2 mean: 74.5 cm/sec MV mean P.5 mmHg MV V2 VTI: 17.4 cm Ao V2 max: 119.7 cm/sec LV V1 max: 94.5 cm/sec MV dec slope: 480.0 cm/sec2 Ao max P.8 mmHg LV V1 max P.6 mmHg Ao V2 mean: 86.5 cm/sec LV V1 mean P.3 mmHg Ao mean P.3 mmHg LV V1 mean: 71.9 cm/sec Ao V2 VTI: 21.5 cm LV V1 VTI: 17.6 cm AV (velocity ratio): 0.82 PA V2 max: 137.7 cm/sec PA V2 mean: 99.9 cm/sec ECHO/Echo Complete Interpretation Summary Normal LV size. Left ventricular systolic function is normal. The left ventricular ejection fraction is 55 %. Structurally normal valves. Ordering Physician: Julio César An Referring Physician: Julio César An Performed By: Angelita Kunz RCS
== END | disposition home or self-care (01) ==
LOC: CVS 14:58
PROVIDERS: PCP Internal Medicine; Referring Provider Internal Medicine Cardiovascular Disease; Visit Provider Internal Medicine Cardiovascular Disease
DX: G90.A Postural orthostatic tachycardia syndrome [POTS] (principal); R55 Syncope and collapse; R42 Dizziness and giddiness
CPT/HCPCS: 93306